=== PATIENT | male | born 1950 | race Caucasian/White ===

== ENCOUNTER 2023-01-15 00:19 | Day surgery (SDC) | payer MEDICARE, SELFPAY ==
[2023-01-14 11:40] VITALS: BMI 25.2
--- NOTE | 2023-01-14 12:06 | PC.NURSE ---
Report to the Outpatient Waiting Room, entrance under the green pavilion located off [facility], at time __0830 on date _01/15/23 . Planned Procedure Time: ___1030 . Time changes happen often and if your time is changed the preop area will call you the afternoon before. - You and your visitor will be asked to self-screen and do not enter if you have any COVID symptoms. - A mask is optional within the hospital at this time. Patients may have clear liquids (water, carbonated beverages, clear teas, apple juice) until 3 hours prior to surgery (0730 AM) with a maximum of 20 ounces. - No food from midnight until time of surgery - Infants may have breast milk until 4 hours before surgery, formula 6 hours prior to surgery. - Children will be allowed to drink immediately following surgery. If applicable, please bring a bottle or sippy cup to assist with drinking. Juice, water, soda, and popsicles are readily available. For infants on formula, please bring formula the day of surgery. Pacifiers are allowed. Take the following medications with a SIP of water the morning of surgery: NONE DO NOT STOP ANY OF YOUR OTHER PRESCRIPTION MEDICATIONS PRIOR TO SURGERY ?EXCEPT THE FOLLOWING Medications to discontinue per physician PT STATS DR BAEZ AWARE LAST OF XARELTO WAS TODAY 01/14/23 Date to take last dose Please no make-up, nail ku[place], hairspray, perfume, deodorant, or body powder the day of surgery. No jewelry (including any body piercings) or valuables the day of surgery, leave them at home. Please take a shower or bath the night before, or the morning of, surgery with an antibacterial soap. Wear comfortable, loose fitting clothing. Children are encouraged to wear pajamas. - Jewelry must be removed prior to entering the operating room. Rings and piercings that are not removed may be cut off. - The hospital will not accept responsibility for valuables. - Please leave all valuables, including medications, at home the day of surgery. If you are going home after surgery, a licensed armor reconnaissance vehicle driver must drive you home. - NO public transportation without another adult if you receive anesthesia. - We recommend that an adult stay with you for 24 hours following discharge. - We also recommend that you do not drive, make important decision, drink alcoholic beverages, or take any drugs that were not prescribed by your health care provider for at least 24 hours after your discharge time. For Pediatric surgeries, we recommend two adults accompany the child home. Follow any additional instructions given to you from your surgeon. If you or anyone in your household have experienced Covid symptoms in the past week, please notify your surgeon or the nurse liaison at the phone number below for possible testing. Telephone instructions given to ____PT and asked if any additional questions and then verbalized understanding. Patient advised to call surgeon office or pre surgery nurse liaison [phone] if any additional questions.
[2023-01-15] VITALS (9 sets, daily range): BP systolic 126–149; BP diastolic 72–92; PULSE 58–65; RESP 10–14; TEMP 36.2–37; O2SAT 99–100
--- NOTE | ~2023-01-15 | XR_ITS ---
EXAMINATION: XR retrograde pyelo w/stent LT DATE: 01/15/2023 11:28 INDICATION: Left internal ureteral stent placement TECHNIQUE: Fluoroscopic images from a left internal ureteral stent placement are submitted for review . 65 seconds of fluoroscopy time. 67 fluoroscopic images. FINDINGS: There is a left double-J internal ureteral stent projecting in expected position, with proximal [place] loop at the level of the renal pelvis and distal loop in the pelvis within the bladder lumen. IMPRESSION: 1. Left internal ureteral stent placement. Please refer to real-time procedural findings for detail s. Reviewed, dictated and finalized at location L. IMPRESSION: 1. Left internal ureteral stent placement. Please refer to real-time procedur al findings for details.
--- NOTE | 2023-01-15 06:46 | WPDHPUPDATE1 ---
History and Physical Update Update Date/Time: 01/15/23 06:46 History and Physical has been reviewed, including an updated exam of the patient. There are NO changes in the patient's condition. Risks, benefits, and alternatives have been discussed and questions answered. Patient agrees to proceed with procedure.
--- NOTE | 2023-01-15 09:27 | P.PNAN_ITS ---
Anes - Initial Pre Proc Eval Procedure: Operation Date: 01/15/23 10:30 Proposed Procedures p Cystoscopy, Left Ureteroscopy, Left Retrograde Pyelogram with Possible Ureteral Biopsy - Pete Alaniz MD Date/Time: 01/15/23 09:27 Surgeon: Pete Alaniz MD Pre Op Diagnosis: Gross Hematuria Patient Data Age: 72 Gender: M Height: 1.8 m Weight: 82.27 kg Allergies Allergy/AdvReac Type Severity Reaction Status Date / Time No Known Allergies Allergy Verified 01/14/23 11:38 Home Medications Medication Instructions Recorded Confirmed Type atorvastatin 20 mg tablet 20 mg HS 01/14/23 01/14/23 History rivaroxaban 20 mg tablet (Xarelto) 20 mg QAM 01/14/23 01/14/23 History Patient hx anesthesia problems: none Family hx anesthesia problems: none Results Review: All pre-operative results and documents have been reviewed as part of the pre- operative evaluation. PMFSH Past Medical History Medical History (Updated 01/15/23 @ 09:34 by Robbin Segovia MD) Pacemaker Pulmonary embolism Social History Social History Smoking packs per day: 1 Smoking cigarettes per day: 20.0 Years smoked: 7 Smoking pack-years: 7.00 Smoking status: Former smoker Tobacco type: cigarettes Second hand tobacco smoke exposure: No Smoking end date: 09/07/74 Alcohol intake: never Substance use: never Substance use type: does not use Living arrangements: with family Spiritual care concerns: No Anes - Eval Final PreProcedure Day of Procedure 01/15/23 09:27 Patient weight: overweight Heart: regular rate and rhythm Lungs: clear to auscultation Airway: Mallampati scale class II Neurological: alert and oriented Last oral intake: >/= 8 hours ASA classification: III Emergent: no Anesthetic plan: proceed Anesthesia type and monitoring: general LMA and standard monitoring Results Review: All pre-operative results and documents have been reviewed as part of the pre- operative evaluation. Informed Consent: The patient's anesthetic plan and its attendant risks and benefits were discussed with the patient/family/POA. Questions were solicited and answers provided to the satisfaction of the patient/family/POA.
--- NOTE | 2023-01-15 09:45 | ECG_ITS ---
Measurements Intervals [place] Rate: 60 P: -89 MS: 213 QRS: -25 QRSD: 155 T: 14 QT: 450 QTc: 450 Interpretive Statements ELECTRONIC ATRIAL PACEMAKER RIGHT BUNDLE BRANCH BLOCK ABNORMAL ECG NO PREVIOUS ECG AVAILABLE FOR COMPARISON Electronically Signed On 01-15-2023 10:06:24 CDT by Joselito Fernandes D.O.
[2023-01-15 09:50] LABS: Prothrombin Time 14.1 Seconds (11.1-14.7)
[2023-01-15 09:51] LABS: Partial Thromboplastin Time 32.5 SECONDS (22.3-36.8)
[2023-01-15] MEDS: ceFAZolin 2 GM/D5W 50 ML 2 GM/50 ML BAG IVPB (10:22)
[2023-01-15] MEDS: LACTATED RINGERS 1,000 ML 30 ML IV CONT (10:29)
[2023-01-15] MEDS: fentaNYL CITRATE INJ (*CRX) 100 MCG/2 ML VIAL 25 MCG IV PUSH ×4 (11:50→11:59)
--- NOTE | 2023-01-15 12:42 | W.PM.PROC2 ---
Procedure Note - Detailed Date of Procedure 01/15/23 Pre-op Diagnosis Gross hematuria Post-op Diagnosis Other ( gross hematuria with very small, benign-appearing polyp of the bladder mucosa and mild edematous changes in the left distal ureter.) Procedure Performed 1. Cystoscopy with bladder biopsy 2. Left ureteroscopy with ureteral biopsy 3. Left retrograde pyelogram 4. Left ureteral stent placement Surgeon Pete Alaniz MD Anesthesia General Description of Procedure Patient is brought to the operative suite was prepped draped in routine sterile fashion while in dorsal lithotomy position after the uneventful induction of a general LMA anesthetic. Cystoscopy shows no urethral stricture but generous lateral lobe hyperplasia of the prostate without a median lobe. There was oozing from the prostatic urethra was simply passing rigid cystoscope. Bladder mucosa is notable for a benign less than 1 cm polyp just below the right ureteral orifice. This does not appear neoplastic. The remainder of the bladder mucosa is perfectly normal. He has a single orthotopic ureteral orifice bilaterally. A 0.035 in glidewire was advanced in the left renal pelvis. An angiographic catheter was used to obtain a retrograde pyelogram. There was no apparent filling defects and no point of obstruction. I dilated the distal ureter with an 8F/10F dilator and performed distal ureteroscopy with a short tapered semi-rigid ureteral scope. For the last 1-2 cm of his distal left ureter there is bullous edematous changes there are not particularly characteristic for neoplasm. The remainder of the distal ureter was endoscopically perfectly normal. I did use a [place] forceps to obtain several biopsies of this edematous tissue in the ureter. Because he is anticoagulated I opted to place a 6 F variable length stent with the proximal coil in the bladder and the distal coil in the bladder. I cauterized the biopsied site in the bladder with a rollerball electrode. scope was removed and I did place a 20F urethral catheter to drainage. Efflux was minimally blood-tinged at the termination of the procedure. Estimated Blood Loss -10.0 Drains No Pathology Yes Condition Stable
--- NOTE | 2023-01-15 12:53 | SUR.PREOP ---
pt had xarelto yesterday at 0800. dr regan office aware and called sagrario and said ok to proceed.
[2023-01-15] MEDS: oxyCODONE HCL (*CRX) 5 MG TAB IR PO (12:56)
[2023-01-15] MEDS: HYOSCYAMINE SULFATE 0.125 MG TABLET PO (13:10)
== END 2023-01-15 14:05 | disposition home or self-care (01) ==
PROVIDERS: PCP Pediatrics; Visit Provider Urology
PROC: (CPT 52352; principal; 2023-01-15 10:30)
DX: D41.4 Neoplasm of uncertain behavior of bladder (principal); R31.0 Gross hematuria; N28.9 Disorder of kidney and ureter, unspecified; N40.1 Benign prostatic hyperplasia with lower urinary tract symptoms; E78.00 Pure hypercholesterolemia, unspecified; Z95.0 Presence of cardiac pacemaker; Z86.711 Personal history of pulmonary embolism; Z79.01 Long term (current) use of anticoagulants; Z87.891 Personal history of nicotine dependence; Z86.718 Personal history of other venous thrombosis and embolism
CPT/HCPCS: 52354; 52332; 36415; 74420; 85610; 85730; 88108; 88305; 93005; A9270; C1758; C1769; C2617; J0690; J1100; J2405; J2704; J3010; J7120

== ENCOUNTER 2023-02-17 13:40 | Outpatient (CLI) | payer MEDICARE, SELFPAY ==
--- NOTE | ~2023-02-17 | US_ITS ---
US renal BI 02/17/2023 14:11 Procedure: Realtime transabdominal ultrasound of the kidneys and bladder. Indication: Gross hematuria Comparison: No prior studies for comparison. Findings: Renal echotexture is normal bilaterally without contour deforming mass or renal calculus. T here is mild left renal caliectasis. The right kidney measures 9.5 cm and left kidney measures 9.5 cm . Bladder within normal limits. Impression: 1: Mild left renal caliectasis. Reviewed, dictated and finalized at location L. Impression: 1: Mild left renal caliectasis.
== END 2023-02-17 13:41 | disposition home or self-care (01) ==
LOC: ANHIMG 13:41
PROVIDERS: PCP Pediatrics; Visit Provider Urology
DX: R31.0 Gross hematuria (principal); N20.0 Calculus of kidney
CPT/HCPCS: 76775